=== PATIENT | female | born 1995 | race Hispanic/Latino ===

== ENCOUNTER 2019-10-14 11:30 | Outpatient (CLI) | payer BC ==
--- NOTE | 2019-10-14 11:45 | RAD ---
XR Hand Rt 3 View STANDARD HISTORY: Injury, right hand pain FINDINGS: No fracture or dislocation is identified.
== END 2019-10-14 11:31 | disposition home or self-care (01) ==
LOC: SCSRAD 11:30
PROVIDERS: ATTEND Family Medicine
DX: M79.641 Pain in right hand (principal)